=== PATIENT | female | born 1980 | race Caucasian/White ===

== ENCOUNTER 2021-08-27 11:22 | Emergency (ER) | payer OTHER, SELFPAY ==
--- NOTE | ~2021-08-27 | XR_ITS ---
EXAMINATION: XR foot RT min 3V DATE: 08/27/2021 11:54 INDICATION: Right foot pain, initial encounter TECHNIQUE: Dorsoplantar, lateral, and 2 oblique views of the right foot were obtained. COMPARISON: None. FINDINGS: There is an acute, traumatic, closed, oblique fracture at the medial base of the fifth prox imal phalanx which extends to the metatarsophalangeal joint. The fracture demonstrates approximately 1 mm of displacement. No additional acute osseous findings are evident. IMPRESSION: 1. Oblique intra-articular fracture at the medial base of the fifth proximal phalanx. Reviewed, dictated and finalized at location B. IMPRESSION: 1. Oblique intra-articular fracture at the medial base of the fifth proximal ph alanx.
[2021-08-27 11:30] VITALS: BP 143/84; PULSE 79; RESP 14; TEMP 36.9; O2SAT 99
--- NOTE | 2021-08-27 11:30 | ED.LOWEXIN ---
HPI - Extremity Injury (Lower) General Chief Complaint: Extremity Injury, Lower Stated Complaint: right foot injury Time Seen by Provider: 08/27/21 11:30 Source: patient and RN notes reviewed History of Present Illness HPI Narrative: Patient is a 40-year-old female who presents the urgent care with complaints of right pinky toe injury. Patient states that on Friday she was attempting to walk over a toy and got her toe stuck on the toy. Patient states that she is having increased pain with weightbearing. Patient has been elevating, using ice and taking ibuprofen for the pain. No other acute complaints or injuries. No acute distress noted. Patient aware of the plan of care. Some parts of this dictation were generated by voice recognition software and may contain typographical and/or grammatical inaccuracies. Related Data Home Medications Medication Instructions Recorded Confirmed cetirizine [Zyrtec] 10 mg PO DAILY 08/27/21 08/27/21 ergocalciferol (vitamin D2) 10 mcg PO DAILY 08/27/21 08/27/21 levothyroxine 50 mcg PO DAILY 08/27/21 08/27/21 Allergies Allergy/AdvReac Type Severity Reaction Status Date / Time amoxicillin AdvReac Rash Verified 08/27/21 11:41 azithromycin AdvReac Rash Verified 08/27/21 11:41 clavulanic acid AdvReac Rash Verified 08/27/21 11:41 [From Augmentin] prednisone AdvReac Rash Verified 08/27/21 11:41 Review of Systems Review of Systems: CONSTITUTIONAL: Denies fever, chills, or sweats. EYES: Denies visual changes, redness, or discharge. ENT: Denies rhinorrhea, congestion, sore throat, or otalgia. CARDIOVASCULAR: Denies chest pain, palpitations, or edema. RESPIRATORY: Denies cough or dyspnea. GASTROINTESTINAL: Denies abdominal pain, nausea, vomiting, or diarrhea. GENITOURINARY: Denies dysuria or hematuria. SKIN: Denies rash or itching. MUSCULOSKELETAL: Reports of pain to the right pinky toe extending to the right foot NEUROLOGIC: Denies headache, numbness, or weakness. All other systems reviewed are negative, except as documented in HPI. PMFSH Comments At the time of my signature, I reviewed and agree with the nursing past medical, surgical, social, and family history. There is no relevant family history pertinent to the patient complaint. Exam Narrative: GENERAL: This is a well-nourished, well-developed patient, in no apparent distress. HEAD: normocephalic, atraumatic. EYES: PERRL. Sclera clear/white. Vision is grossly intact. EARS: External ears normal NOSE: External nose normal with no obvious nasal discharge, nares without redness, no rhinorrhea. THROAT: Mucous membranes moist NECK: Neck supple CARDIOVASCULAR: Regular rate and rhythm without murmurs, gallops, or rubs. RESPIRATORY: Clear to auscultation. Breath sounds equal bilaterally. No wheezes, rales, or rhonchi. SKIN: warm, intact with no suspicious lesions or rash, good texture and turgor. NEURO: awake, alert, and oriented to person, place and time. There were no obvious focal neurologic abnormalities. EXTREMITIES: Moderate ecchymosis to the lateral aspect of the right foot extending to the right fifth digit with moderate tenderness. Positive strong right pedal pulse with capillary refill less than 2 seconds. Pain exacerbated with weightbearing. Range of motion right lower extremity within normal limits. No obvious deformity noted Course Course Level of Care: Express Care Visit Vital Signs Vital signs: Vital Signs Temperature 98.4 F 08/27/21 11:30 Pulse Rate 79 08/27/21 11:30 Respiratory Rate 14 08/27/21 11:30 Blood Pressure 143/84 H 08/27/21 11:30 Pulse Oximetry 99 08/27/21 11:30 Temperature 98.4 F 08/27/21 11:30 Pulse Rate 79 08/27/21 11:30 Respiratory Rate 14 08/27/21 11:30 Blood Pressure 143/84 H 08/27/21 11:30 Pulse Oximetry 99 08/27/21 11:30 Reviewed-patient is informed that they may have pre-hypertension or hypertension based on a blood pressure reading in the department. I deon
== END 2021-08-27 12:22 | disposition home or self-care (01) ==
PROVIDERS: Emergency Provider Nurse Practitioner Family
DX: S92.511A Displaced fracture of proximal phalanx of right lesser toe(s), initial encounter for closed fracture (principal); W22.8XXA Striking against or struck by other objects, initial encounter; E03.9 Hypothyroidism, unspecified
CPT/HCPCS: 73630; 99214; G0463